=== PATIENT | female | born 1995 | race Caucasian/White ===

== ENCOUNTER 2017-03-25 13:38 | Outpatient (CLI) | payer OTHER ==
[2017-03-25 14:48] LABS: ADD UMIC YES; UR ASCORBIC ACID NEGATIVE (NEGATIVE); UR BILIRUBIN (Dip) NEGATIVE (NEGATIVE); UR BLOOD (Dip) NEGATIVE (NEGATIVE); UR CLARITY CLEAR (CLEAR); UR COLOR COLORLESS (YELLOW); UR GLUCOSE (Dip) NEGATIVE (NEGATIVE); UR KETONES (Dip) NEGATIVE (NEGATIVE); UR LEUKOCYTE ESTERASE (Dip) 1+ Leu/ul (NEGATIVE); UR NITRITE (Dip) NEGATIVE (NEGATIVE); UR RBC 0 /HPF (0-5); UR SPECIFIC GRAVITY (Dip) 1.003 (1.003-1.030); UR SQUAMOUS EPITHELIAL CELL FEW /HPF (FEW); UR TOTAL PROTEIN (Dip) NEGATIVE (NEGATIVE); UR UROBILINOGEN (Dip) NEGATIVE (NEGATIVE); UR WBC 1 /HPF (0-5)
== END 2017-03-25 16:45 | disposition home or self-care (01) ==
LOC: OBT 13:38 → L-D 13:38 → OBT 16:45
DX: O26.853 Spotting complicating pregnancy, third trimester (principal); O47.03 False labor before 37 completed weeks of gestation, third trimester; Z3A.32 32 weeks gestation of pregnancy
CPT/HCPCS: 76816; 76817; 76818; 81001

== ENCOUNTER 2017-03-25 19:08 | Outpatient (CLI) | payer OTHER ==
[2017-04-21 19:46] LABS: URINE BLOOD (Dip) POC Negative (NEGATIVE); URINE GLUCOSE (Dip) POC Negative (NEGATIVE); URINE KETONES (Dip) POC Negative (NEGATIVE); URINE LEUKOCYTE EST (Dip) POC 1+ (NEGATIVE); URINE NITRITE (Dip) POC Negative (NEGATIVE); URINE TOTAL PROTEIN POC Negative (NEGATIVE)
[2017-04-21 21:15] LABS: ADD UMIC YES; UR ASCORBIC ACID NEGATIVE (NEGATIVE); UR BACTERIA FEW /HPF (NONE SEEN); UR BILIRUBIN (Dip) NEGATIVE (NEGATIVE); UR BLOOD (Dip) NEGATIVE (NEGATIVE); UR CLARITY CLEAR (CLEAR); UR COLOR COLORLESS (YELLOW); UR GLUCOSE (Dip) NEGATIVE (NEGATIVE); UR KETONES (Dip) NEGATIVE (NEGATIVE); UR LEUKOCYTE ESTERASE (Dip) 2+ Leu/ul (NEGATIVE); UR NITRITE (Dip) NEGATIVE (NEGATIVE); UR RBC 0 /HPF (0-5); UR SPECIFIC GRAVITY (Dip) 1.002 (1.003-1.030); UR TOTAL PROTEIN (Dip) NEGATIVE (NEGATIVE); UR UROBILINOGEN (Dip) NEGATIVE (NEGATIVE); UR WBC 2 /HPF (0-5)
[2017-04-21 21:23] LABS: ADD MAN DIFF? NO
[2017-04-21 21:25] LABS: WHITE BLOOD COUNT 6.1 10^3/ul (4.8-10.8)
[2017-04-21 21:25] LABS: BASOPHILS % 0.3 % (0.0-2.0); EOSINOPHILS % 0.7 % (0.0-7.0); HEMATOCRIT 31.5 % (37.0-47.0); HEMOGLOBIN 10.3 g/dl (12.0-16.0); LYMPHOCYTES # 1.7 10^3/ul (0.8-2.9); LYMPHOCYTES % 27.3 % (15.0-51.0); MEAN CORPUSCULAR HEMOGLOBIN 25.6 pg (29.0-33.0); MEAN CORPUSCULAR HGB CONC 32.7 g/dl (32.0-37.0); MEAN CORPUSCULAR VOLUME 78.2 fl (82.0-101.0); MEAN PLATELET VOLUME 12.1 fl (7.4-10.4); MONOCYTE # 0.4 10^3/ul (0.3-0.9); MONOCYTES % 6.6 % (0.0-11.0); NEUTROPHIL # 3.9 10^3/ul (1.6-7.5); NEUTROPHILS % 64.8 % (39.0-77.0); PLATELET COUNT 171 10^3/UL (140-415); RED BLOOD COUNT 4.03 10^6/ul (4.20-5.40); RED CELL DISTRIBUTION WIDTH 18.1 % (11.5-14.5)
[2017-04-21 21:40] LABS: INR 0.88; PT RATIO 0.9
[2017-04-21 21:41] LABS: PARTIAL THROMBOPLASTIN TIME 28.8 Sec (25.0-35.0)
[2017-04-21 21:45] LABS: ALANINE AMINOTRANSFERASE 28 IU/L (13-69); ALBUMIN 3.2 g/dl (3.3-4.9); ALBUMIN/GLOBULIN RATIO 1.06; ALKALINE PHOSPHATASE 222 IU/L (42-121); ANION GAP 12 (8-16); ASPARTATE AMINO TRANSFERASE 22 IU/L (15-46); BLOOD UREA NITROGEN 8 mg/dl (7-20); CALCIUM 9.3 mg/dl (8.4-10.2); CARBON DIOXIDE 22 mmol/L (21-31); CHLORIDE 107 mmol/L (97-110); CREATININE 0.52 mg/dl (0.44-1.00); GLUCOSE 80 mg/dl (70-220); POTASSIUM 3.9 mmol/L (3.5-5.1); SODIUM 137 mmol/L (135-144); TOTAL PROTEIN 6.2 g/dl (6.1-8.1); URIC ACID 3.6 mg/dl (3.1-7.9)
== END 2017-04-21 22:45 | disposition home or self-care (01) ==
LOC: OBT 19:08 → L-D 04-21 19:34 → OBT 04-21 22:45
DX: O13.3 Gestational [pregnancy-induced] hypertension without significant proteinuria, third trimester (principal); Z3A.36 36 weeks gestation of pregnancy
CPT/HCPCS: 36415; 76815; 80053; 81001; 81003; 84560; 85025; 85610; 85730

== ENCOUNTER 2017-05-02 13:09 | Inpatient (IN) | payer OTHER ==
[2017-05-02 14:11] LABS: ADD MAN DIFF? NO
[2017-05-02 14:15] LABS: ABNORMAL IP MESSAGE 1; BASOPHILS % 0.2 % (0.0-2.0); EOSINOPHILS % 0.3 % (0.0-7.0); HEMATOCRIT 35.8 % (37.0-47.0); HEMOGLOBIN 11.3 g/dl (12.0-16.0); LYMPHOCYTES # 0.9 10^3/ul (0.8-2.9); LYMPHOCYTES % 14.5 % (15.0-51.0); MEAN CORPUSCULAR HEMOGLOBIN 25.2 pg (29.0-33.0); MEAN CORPUSCULAR HGB CONC 31.6 g/dl (32.0-37.0); MEAN CORPUSCULAR VOLUME 79.7 fl (82.0-101.0); MONOCYTE # 0.4 10^3/ul (0.3-0.9); MONOCYTES % 5.6 % (0.0-11.0); NEUTROPHIL # 5.1 10^3/ul (1.6-7.5); NEUTROPHILS % 78.8 % (39.0-77.0); PLATELET COUNT 187 10^3/UL (140-415); RED BLOOD COUNT 4.49 10^6/ul (4.20-5.40); RED CELL DISTRIBUTION WIDTH 18.6 % (11.5-14.5)
[2017-05-02 14:15] LABS: WHITE BLOOD COUNT 6.5 10^3/ul (4.8-10.8)
[2017-05-02 14:16] LABS: POSITIVE DIFF @See below
[2017-05-02 14:19] LABS: ADD UMIC YES; UR ASCORBIC ACID NEGATIVE (NEGATIVE); UR BILIRUBIN (Dip) NEGATIVE (NEGATIVE); UR BLOOD (Dip) NEGATIVE (NEGATIVE); UR CLARITY CLEAR (CLEAR); UR COLOR STRAW (YELLOW); UR GLUCOSE (Dip) NEGATIVE (NEGATIVE); UR KETONES (Dip) NEGATIVE (NEGATIVE); UR LEUKOCYTE ESTERASE (Dip) TRACE Leu/ul (NEGATIVE); UR NITRITE (Dip) NEGATIVE (NEGATIVE); UR RBC 0 /HPF (0-5); UR SPECIFIC GRAVITY (Dip) 1.009 (1.003-1.030); UR TOTAL PROTEIN (Dip) NEGATIVE (NEGATIVE); UR UROBILINOGEN (Dip) NEGATIVE (NEGATIVE); UR WBC 1 /HPF (0-5)
[2017-05-02 14:34] LABS: ALANINE AMINOTRANSFERASE 22 IU/L (13-69); ALBUMIN 3.5 g/dl (3.3-4.9); ALKALINE PHOSPHATASE 239 IU/L (42-121); ANION GAP 14 (8-16); ASPARTATE AMINO TRANSFERASE 21 IU/L (15-46); BILIRUBIN,INDIRECT 0.1 mg/dl (0-1.1); BILIRUBIN,TOTAL 0.1 mg/dl (0.2-1.3); BLOOD UREA NITROGEN 9 mg/dl (7-20); CALCIUM 9.2 mg/dl (8.4-10.2); CARBON DIOXIDE 23 mmol/L (21-31); CHLORIDE 106 mmol/L (97-110); CREATININE 0.55 mg/dl (0.44-1.00); GLUCOSE 68 mg/dl (70-220); POTASSIUM 4.4 mmol/L (3.5-5.1); SODIUM 139 mmol/L (135-144); URIC ACID 3.8 mg/dl (3.1-7.9)
[2017-05-02] MEDS ORDERED: LACTATED RINGER'S 1,000 ML IV (18:43)
[2017-05-02 18:55] LABS: INR 0.84; PROTIME 11.6 Sec (11.9-14.9); PT RATIO 0.9
[2017-05-02 18:56] LABS: PARTIAL THROMBOPLASTIN TIME 29.7 Sec (25.0-35.0)
[2017-05-02] MEDS ORDERED: MISOPROSTOL 200 MCG TAB PR (19:00)
[2017-05-02] MEDS ORDERED: CARBOPROST 250 MCG INJ IM (19:00)
[2017-05-02] MEDS ORDERED: IBUPROFEN 600 MG TAB PO (19:00)
[2017-05-02] MEDS ORDERED: BUTORPHANOL 2 MG INJ IV (19:00)
[2017-05-02] MEDS ORDERED: OXYTOCIN 30 UNITS/LR 500 ML IV (19:00)
[2017-05-02] MEDS ORDERED: METHYLERGONOVINE 0.2 MG INJ IM (19:00)
[2017-05-02] MEDS ORDERED: LIDOCAINE 1% (MPF) 30 ML INJ INJ (19:00)
[2017-05-02 19:28] LABS: HEPATITIS B SURFACE ANTIGEN NEGATIVE (NEGATIVE)
[2017-05-02] MEDS ORDERED: FENTAnyl 2MCG/ML-ROPIV 0.2% 100 ML (19:48)
[2017-05-02] MEDS ORDERED: NALOXONE (0.4 MG/ML) INJ IV (20:00)
[2017-05-02] MEDS: LACTATED RINGER'S 1,000 ML IV (20:04)
[2017-05-03] MEDS: LACTATED RINGER'S 1,000 ML IV (02:39)
[2017-05-03] MEDS: FENTAnyl 2MCG/ML-ROPIV 0.2% 100 ML BAG EPI (03:56)
[2017-05-03] MEDS: OXYTOCIN 30 UNITS/LR 500 ML IV ×3 (04:51→06:21)
[2017-05-03] MEDS ORDERED: MISOPROSTOL 200 MCG TAB PR (07:00)
[2017-05-03] MEDS ORDERED: CARBOPROST 250 MCG INJ IM (07:00)
[2017-05-03] MEDS ORDERED: METHYLERGONOVINE 0.2 MG INJ IM (07:00)
[2017-05-03] MEDS ORDERED: ONDANSETRON 4 MG INJ IV (07:00)
[2017-05-03] MEDS ORDERED: OXYCODONE/ASPIRIN (4.88/325) TAB PO ×2 (07:00)
[2017-05-03] MEDS ORDERED: DIPHENHYDRAMINE 25 MG CAP PO (07:00)
[2017-05-03] MEDS ORDERED: OXYTOCIN 30 UNITS/LR 500 ML IV (07:00)
[2017-05-03] MEDS ORDERED: SENNA/DOCUSATE NA (8.6MG/50MG) TAB PO (07:00)
[2017-05-03] MEDS: WITCH HAZEL/GLYCERIN PAD PR (09:42)
[2017-05-03] MEDS: BENZOCAINE 20% 56 ML SPRAY TOP (09:42)
[2017-05-03] MEDS: DIBUCAINE 1% 30 GM OINT PR (09:42)
[2017-05-03] MEDS: SENNA/DOCUSATE NA (8.6MG/50MG) TAB PO ×2 (09:42→20:57)
[2017-05-03] MEDS: LANOLIN 7 GM TUBE TOP (09:43)
[2017-05-03] MEDS: IBUPROFEN 600 MG TAB PO ×2 (13:53→18:42)
[2017-05-03 15:03] LABS: RAPID PLASMA REAGIN NONREACTIVE (NR)
[2017-05-04] MEDS: IBUPROFEN 600 MG TAB PO ×5 (00:31→23:55)
[2017-05-04 08:41] LABS: ABNORMAL IP MESSAGE 1; HEMOGLOBIN 9.9 g/dl (12.0-16.0); MEAN CORPUSCULAR HEMOGLOBIN 25.6 pg (29.0-33.0); MEAN CORPUSCULAR HGB CONC 31.9 g/dl (32.0-37.0); MEAN CORPUSCULAR VOLUME 80.3 fl (82.0-101.0); MEAN PLATELET VOLUME 13.1 fl (7.4-10.4); NUCLEATED RED BLOOD CELLS% 15.1 /100WBC (0.0-0.0); PLATELET COUNT 165 10^3/UL (140-415); RED BLOOD COUNT 3.86 10^6/ul (4.20-5.40); RED CELL DISTRIBUTION WIDTH 19.4 % (11.5-14.5)
[2017-05-04 08:41] LABS: WHITE BLOOD COUNT 7.2 10^3/ul (4.8-10.8)
[2017-05-04 08:50] LABS: POSITIVE DIFF @See below
[2017-05-04 08:51] LABS: ADD MAN DIFF? YES
[2017-05-04] MEDS: SENNA/DOCUSATE NA (8.6MG/50MG) TAB PO ×2 (10:09→21:05)
[2017-05-04 10:31] LABS: ANISOCYTOSIS 2+ (0-0); BAND NEUTROPHILS % (M) 1 % (0-4); BURR CELLS 1+ (0-0); EOSINOPHILS % (M) 1 % (0-7); ERYTHROBLAST% (NRBC) (M) 1 % (0-0); GIANT THROMBO% (M) 1 % (0-0); LYMPHOCYTES #M 1.8 10^3/ul (0.8-2.9); LYMPHOCYTES % (M) 25 % (15-51); MICROCYTOSIS 2+ (0-0); MONOCYTE #M 0.1 10^3/ul (0.3-0.9); MONOCYTES % (M) 2 % (0-11); PLATELET ESTIMATE NORMAL; POIKILOCYTOSIS 1+ (0-0); POLYCHROMASIA 2+ (0-0); SEG NEUT #M 5.1 10^3/ul (1.6-7.5); SEGMENTED NEUTROPHILS (M) % 71 % (39-77); SMUDGE%M 5 % (0-0)
[2017-05-05] MEDS: IBUPROFEN 600 MG TAB PO ×2 (05:32→12:17)
[2017-05-05] MEDS: SENNA/DOCUSATE NA (8.6MG/50MG) TAB PO (08:58)
== END 2017-05-05 13:45 | disposition home or self-care (01) | DRG 775 ==
LOC: OBT 13:09 → PP1 05-03 08:23 → L-D 13:10 → OBT 18:40 → L-D 18:40
PROC: 10E0XZZ Delivery of Products of Conception, External Approach (ICD-10-PCS; principal; 2017-05-03)
PROC: 0KQM0ZZ Repair Perineum Muscle, Open Approach (ICD-10-PCS; 2017-05-03)
DX: O70.1 Second degree perineal laceration during delivery (principal); Z37.0 Single live birth; Z3A.38 38 weeks gestation of pregnancy
CPT/HCPCS: 36415; 62319; 76815; 76818; 80053; 81001; 84560; 85025; 85610; 85730; 86592; 86850; 86900; 86901; 87340